=== PATIENT | female | born 1955 | race Caucasian/White ===

== ENCOUNTER → 2017-11-04 | Outpatient (CLI) | payer BC ==
[~2017-11-04] MED LIST: ESTRADIOL; VAL80 PO
--- NOTE | 2017-11-04 17:14 | RADIOLOGY IMAGING REPORT ---
FACILITY: [facility] - [place] PATIENT NAME: Joana Keene : 1955 MR: [id number] V: [id number] EXAM DATE: ORDERING PHYSICIAN: SUYAPA RUFF TECHNOLOGIST: Location: [facility] Patient: Joana Keene : 1955 Visit/Account:[id number] Date of Sevice: 11/04/2017 CHEST, 2 Views HISTORY: Shortness of breath and chest tightness COMPARISON: None available FINDINGS: Heart size is normal. Normal size thoracic aorta. Mediastinum and daria are normal. Lungs are clear of infiltrate and atelectasis. No pneumothorax or pleural effusion. There is a pectus excavatum chest deformity that causes and indistinct right cardiac margin. Cholecystectomy. IMPRESSION: Pectus excavatum chest deformity. No radiographic evidence of an acute chest process. Report Dictated By: Karena Hughes MD at 11/04/2017 5:08 PM Report E-Signed By: Karena Hughes MD at 11/04/2017 5:09 PM WSN:[id number]
== END ==
LOC: RAD 16:10
PROVIDERS: ATTEND Physician Assistant Medical
DX: Q67.6 Pectus excavatum (principal); Z90.49 Acquired absence of other specified parts of digestive tract
CPT/HCPCS: 71046

== ENCOUNTER → 2017-11-04 | Outpatient (REF) | payer BC | LOC: ZZSENDIN 16:27 | PROVIDERS: ATTEND Physician Assistant Medical | DX: R06.00 Dyspnea, unspecified (principal) | CPT/HCPCS: 85379 ==

== ENCOUNTER → 2018-05-21 | Outpatient (CLI) | payer BC ==
--- NOTE | 2018-05-21 16:26 | RADIOLOGY IMAGING REPORT ---
FACILITY: [facility] - [place] PATIENT NAME: ELLY ESCALANTE : [id number] MR: [id number] V: [id number] EXAM DATE: ORDERING PHYSICIAN: NIKOS VENEGAS TECHNOLOGIST: Nadia Ruggiero PROCEDURE:BILATERAL DIGITAL SCREENING MAMMOGRAM WITH CAD ASSISTED INTERPRETATION & 3D TOMOSYNTHESIS COMPARISON:Prior mammograms 04/10/17, 02/24/16, 12/15/13, 08/05/12. INDICATIONS:SCREENING FINDINGS: There are scattered areas of fibroglandular density throughout both breasts. The parenchymal pattern has remained stable allowing for difference in mammographic technique & patient positioning. DIAGNOSTIC CATEGORY 1--NEGATIVE. RECOMMENDATIONS: ROUTINE MAMMOGRAM AND CLINICAL EVALUATION. IMPRESSION: BIRADS 1: Negative. No significant abnormality is seen. Dictated by: Tanya Swenson M.D. on 05/21/2018 at 10:13 Transcribed by: BUDDY on 05/21/2018 at 10:19 Approved by: Tanya Swenson M.D. on 05/21/2018 at 16:26 [facility]
== END ==
LOC: MAMO 02:46
PROVIDERS: ATTEND Family Medicine
DX: Z12.31 Encounter for screening mammogram for malignant neoplasm of breast (principal)
CPT/HCPCS: 77063; 77067